=== PATIENT | male | born 1945 | race Caucasian/White ===

== ENCOUNTER 2018-07-01 05:48 | Inpatient (IN) | payer OTHER ==
[~2018-07-01] VITALS: Ht 185.4 cm; Wt 142.9 kg
[~2018-07-01 05:48] MED LIST: ASPIRIN325 PO; FISH OIL OMEGA1 EAC3 PO; LIPITOR10 MG PO; LOPRESSOR25 PO; MEDROLDOSEPACK PO; NYAMYC15 GM TOP; ONE TOUCH VERI EAC MC; PROAIR HFA8.5 GM INH
[2018-07-01 05:57] VITALS: BP 152/84
[2018-07-01] MEDS ORDERED: ASPIR 8181 MG PO (06:05)
[2018-07-01] MEDS ORDERED: METFORMIN HCL500 MG PO (06:06)
[2018-07-01] MEDS ORDERED: ZYRTEC 10 MG TA10 MG PO (06:28)
[2018-07-01] MEDS ORDERED: PEPCID40 MG PO (06:28)
[2018-07-01] MEDS ORDERED: PREDNISONE 20 M20 M1 PO (06:28)
[2018-07-01] MEDS ORDERED: LEVAQUIN 500 M500 MG PO (06:28)
[2018-07-01 06:53] LABS: INFLUENZA A ANTIGEN None Detected (None Detect); INFLUENZA B ANTIGEN None Detected (None Detect)
--- NOTE | 2018-07-01 07:15 | NUR ---
PT RECIEVED DC PAPAERS. PT WAS READY TO GO HOME WITH VSS. CENTRAL SUPPLY CAME TO NURSE AND STATED PT WAS DIZZY. NURSE ARRIVED TO ROOM PT WAS NOTED TO BE PALE DIAPHORETIC AND VERY UNSTEADY. NURSE CALLED FOR DR. ALEXANDRE AT BEDSIDE. WILL ATTEMPT TO GET PT NIKOLE TO BED. WHILE SITTING PT BP WAS 58/31.
[2018-07-01 07:47] LABS: HEMATOCRIT 45.8 % (42.0-52.0); HEMOGLOBIN 15.1 gm/dL (14.0-18.0); MCH 27.7 pg (26.0-34.0); MCV 83.8 fL (80.0-100.0); MPV 9.4 fl. (7.2-11.1); RBC 5.46 mil/uL (4.50-6.00); RDW-CV 15.5 % (10.5-14.5); WBC 13.7 thou/uL (4.0-11.0)
[2018-07-01 08:01] LABS: ALBUMIN 3.3 g/dL (3.4-5.0); ALKALINE PHOSPHATASE 66 U/L (46-116); ANION GAP 14 mmol/L (7-16); BUN 21 mg/dL (7-18); CALCIUM 9.1 mg/dL (8.5-10.1); CHLORIDE 105 mmol/L (98-107); CO2 23 mmol/L (21-32); CREATININE 1.4 mg/dL (0.6-1.3); GLUCOSE 260 mg/dL (70-99); POTASSIUM 4.4 mmol/L (3.5-5.1); SGOT 16 U/L (15-37); SGPT 42 U/L (30-65); SODIUM 142 mmol/L (136-145); TOTAL BILIRUBIN 0.6 mg/dL (<0.1-1.0); TOTAL PROTEIN 6.5 g/dL (6.4-8.2); TROPONIN-I LEVEL <0.06 ng/mL (<0.06)
[2018-07-01 09:13] LABS: URINE BILIRUBIN NEGATIVE (Negative); URINE BLOOD NEGATIVE (Negative); URINE CLARITY CLEAR; URINE COLOR YELLOW; URINE GLUCOSE-RANDOM 1+ (Negative); URINE KETONES NEGATIVE (Negative); URINE LEUKOCYTES-REFLEX NEGATIVE (Negative); URINE NITRITE-REFLEX NEGATIVE (Negative); URINE PROTEIN TRACE (Negative); URINE SPECIFIC GRAVITY >= 1.030 (1.005-1.030); URINE UROBILINOGEN 0.2 E.U./dl (0.2-1.0)
--- NOTE | 2018-07-01 10:06 | EKG ---
[place] [address] ELECTROCARDIOGRAM REPORT Name: AMI OLMEDO Room: [place] [address] [facility].#: [id number] Admission: 07/01/18 Attend Phys: Gerri Khanna Discharge: Date of : 45 Report #: [id number] THIS REPORT FOR: //name// [facility] ED Test Date: 2018-07-01 Test Time: 07:58:18 Pat Name: AMI OLMEDO Department: Room: [facility] Gender: M [employer]: DANIELE : 1945 Requested By: Facundo Moore Order Number: [id number] MD: Néstor Reeves Measurements Intervals [place] Rate: 72 P: 43 OR: 164 QRS: -44 QRSD: 110 T: 61 QT: 425 QTc: 466 Interpretive Statements Sinus rhythm Incomplete RBBB and LAFB Low voltage, precordial leads Abnormal R-wave progression, early transition Compared to ECG 07/03/2015 21:15:23 Incomplete right bundle-branch block now present Low QRS voltage now present Electronically Signed On 07-01-2018 10:06:12 CDT by Néstor Reeves [email or web address] <ELECTRONICALLY SIGNED> By: Néstor Reeves MD, FACC 07/01/18 [id number] Néstor Reeves MD, FAC /EPI
[2018-07-01 14:00] VITALS: BP 116/48
[2018-07-01 14:23] VITALS: BP 106/50
--- NOTE | 2018-07-01 15:14 | NUR ---
PATIENT CAME TO THE FLOOR FROM THE ER IN STABLE CONDITION. VITAL SIGNS STABLE ON ROOM AIR. ROOM ORIENTATION AND ADMISSION ASSESSMENT DONE. QUESTIONS ANSWERED FOR PATIENT AND SPOUSE. CALL LIGHT IS IN REACH, WILL CONTINUE TO MONITOR.
[2018-07-01 16:49] VITALS: BP 135/62
--- NOTE | 2018-07-01 17:09 | NUR ---
PATIENT IS ALERT AND ORIENTED SINCE COMING TO THE FLOOR FROM THE ER, NO COMPLAINT OF PAIN JUST ITCHING. VITAL SIGNS ARE STABLE ON ROOM AIR. IV FLUIDS RUNNING IN RIGHT AC. CALL LIGHT IS IN REACH WILL CONTINUE TO MONITOR.
[2018-07-01 21:23] VITALS: BP 120/61
[2018-07-02 00:30] VITALS: BP 110/52
[2018-07-02 03:54] VITALS: BP 136/70
[2018-07-02 08:00] VITALS: BP 132/65
[2018-07-02 12:51] LABS: HEMATOCRIT 40.6 % (42.0-52.0); HEMOGLOBIN 13.2 gm/dL (14.0-18.0); MCH 27.6 pg (26.0-34.0); MCHC 32.4 g/dL (28.0-37.0); MPV 9.6 fl. (7.2-11.1); NUCLEATED RBCS 0 /100WBC; PLATELET COUNT* 113 thou/uL (150-400); RBC 4.78 mil/uL (4.50-6.00); RDW-CV 15.2 % (10.5-14.5); WBC 11.3 thou/uL (4.0-11.0)
[2018-07-02 13:10] LABS: ABSOLUTE LYMPHOCYTES 0.3 thou/uL (0.8-5.3); ABSOLUTE MONOCYTES 0.6 thou/uL (0.0-1.2); ABSOLUTE NEUTROPHILS 10.4 thou/uL (1.6-8.1); ANISOCYTOSIS 1+; CALCIUM 8.2 mg/dL (8.5-10.1); CREATININE 1.3 mg/dL (0.6-1.3); PLATELET ESTIMATE DECREASED; POIKILOCYTOSIS 1+; POTASSIUM 4.5 mmol/L (3.5-5.1); TOTAL BILIRUBIN 0.4 mg/dL (<0.1-1.0); TOTAL PROTEIN 6.3 g/dL (6.4-8.2)
--- NOTE | 2018-07-02 16:09 | NUR ---
ASSUMED CARE AT 0730. ALERT ORIENTED PLEASANT COOPERATIVE. HX OF HIVES ITCHING. PT. HAS PINK BLOTCHES NECK CREASES ARMS AND KNEES AND OTHER ASSORTED PLACES. PT. IS ON BENADRYL SCHEDULED AND PREDNISONE ORAL. IMPROVED LOOK THIS AFTERNOON. IV INFUSING AT 100CCS THIS AFTERNOON RT. HAND NO REDNESS BUT PT. HAS EDEMMA BOTH HANDS. DR. POWERS ROUNDED LATER AFTERNOON CONCERNED NOONE HAD BEEN IN YET TO SEE PT. DENIES PAIN OR REQUESTS OTHER THAN WHY HE HAD THE HIVES. CONTINUE TO MONITOR.
--- NOTE | 2018-07-02 16:17 | NUR ---
SW met with pt and pt to complete initial assessment, introduce self, and SW role. Pt alert, oriented, pleasant. Pt lives at home with his and is independent in mobility and ADLs. Pt does not express any dc needs at this time. SW to remain available to assist with safe dc planning.
[2018-07-02 16:53] VITALS: BP 135/60
[2018-07-02 20:30] VITALS: BP 128/56
[2018-07-02 23:59] VITALS: BP 119/68
[2018-07-03 04:08] VITALS: BP 139/66
--- NOTE | 2018-07-03 05:18 | NUR ---
PT SLEPT WELL OVERNIGHT. HS ACCHECK 396, INSULIN GIVEN ORDERED. BENADRYL GIVEN ORDERED. IVF INFUSING PER PUMP. PO PREDNISONE GIVEN. PT STATED AT HS THAT HE WAS FEELING MUCH BETTER AND NOT HAVING ANY ITCHING ANYMORE. HOPEFUL FOR DISCHARGE HOME TODAY. R HAND IV. CALL LITE IN EASY REACH.
[2018-07-03 08:05] VITALS: BP 134/64
[2018-07-03 10:45] VITALS: BP 134/64
[2018-07-03] MEDS ORDERED: PREDNISONE 10 M10 MG PO (11:08)
[2018-07-03] MEDS ORDERED: SINGULAIR 10 MG10 M1 PO (12:21)
[2018-07-03 12:50] VITALS: BP 139/67
--- NOTE | 2018-07-03 13:15 | NUR ---
PATIENT DISCHARGED TO HOME. DISCHARGE PAPERS REVIEWED AND SIGNED. PRESCRIPTIONS AND INFORMATION SHEETS GIVEN. NO IV. PATIENT DENIES ANY FURTHER NEEDS. PATIENT TAKEN AMBULATORY TO EXIT. LEFT BY OWN VEHICLE.
== END 2018-07-03 13:15 | disposition home or self-care (01) | DRG 915 ==
LOC: M.ERS 05:48 → M.3W 09:16 → M.TBA-ER 09:16 → M.3W 14:12
PROVIDERS: Emergency Medicine Emergency Medical Services; Family Medicine; ADMIT Internal Medicine
DX: T78.40XA Allergy, unspecified, initial encounter (principal); R65.11 Systemic inflammatory response syndrome (SIRS) of non-infectious origin with acute organ dysfunction; N17.9 Acute kidney failure, unspecified; Z68.41 Body mass index [BMI] 40.0-44.9, adult; E11.22 Type 2 diabetes mellitus with diabetic chronic kidney disease; L50.9 Urticaria, unspecified; E11.42 Type 2 diabetes mellitus with diabetic polyneuropathy; E66.01 Morbid (severe) obesity due to excess calories; N18.3 Chronic kidney disease, stage 3 (moderate); Z90.49 Acquired absence of other specified parts of digestive tract; Z95.1 Presence of aortocoronary bypass graft; Z79.82 Long term (current) use of aspirin; Z79.899 Other long term (current) drug therapy